=== PATIENT | female | born 1970 | race Caucasian/White ===

== ENCOUNTER 2016-10-26 11:48 | Outpatient (CLI) | payer MEDICAID ==
[~2016-10-26] VITALS: Ht 167.6 cm; Wt 65.9 kg
--- NOTE | ~2016-10-26 | HEMODYNAMI ---
PATIENT:MANAN APARICIO MEDICAL RECORD: [id number] : 74 LOCATION:[facility] ADMISSION DATE: 10/26/16 Generatedon:10/26/201616:24 Patient name: MANAN APARICIO Patient #: [id number] SSN: D OB: 1970 Date of study: 10/26/2016 Page: Of Hemodynamic Procedure Report Patient Data Patient Demographics Procedure consent was obtained First Name: MANAN Gender: Female Last Name: MARKUS : 1970 Patient #: [id number] Age: 46 year(s) Race: Additional ID: [id number] Contact details Address: [address] [place] [address] ROAD State: [place] City: [place] Zip code: [address] Past Medical History Allergies Allergen Reaction Date Comments Reported Amoxicillin 10/26/2016 Admission Admission Data Admission Date: 10/26/2016 Admission Time: 11:48 Height (in.): 66 BSA: 1.74 (m2) Height (cm.): 167.64 BMI: 23.4 (kg/m2) Weight (lbs.): 145 Weight (kg.): 65.77 Current Diagnosis Diagnosis Description Stable angina Lab Results Lab Result Date: 10/26/2016 Lab Result Time: 0:00 Biochemistry Name Units Result Min Max BUN mg/dl 9 --(*---)-- 7 18 Creatinine mg/dl 0.9 --(-*--)-- 0.6 1.3 CBC Name Units Result Min Max Hemoglobin g/dl 13.6 --(*---)-- 13.5 17.5 Procedure Procedure Types Cath Procedure Diagnostic Procedure C [facility] w/Coronaries Procedure Description Procedure Date Procedure Date: 10/26/2016 Procedure Start Time: 16:07 Procedure End Time: 16:18 Procedure Staff Name Function Marco Ruano RT Scrub Sivakumar Link RT Monitor Jona Martinez MD Performing Physician Joseline Cruz RN Nurse Procedure Data Cath Procedure Fluoroscopy Diagnostic fluoroscopy Total fluoroscopy Time: 1.2 time: 1.2 min min Diagnostic fluoroscopy Total fluoroscopy dose: 143 dose: 143 mGy mGy Contrast Material Contrast Material Type Amount (ml) Isovue 300 50 Entry Location Entry Primary Successful Side Size Upsize Upsize Entry Closure Gonzalez ccessful Closure Location (Fr) 1 (Fr) 2 (Fr) Remarks Device Remarks Radial Right 6 Fr Mechanical artery Short Compression Diagnostic catheters Device Type Used For End Catheter Placement Terumo 5Fr Reardan 110cm LV Angiography catheter Procedure Complications No complications Procedure Medications Medication Administration Route Dosage Oxygen NRB 2 l/min Heparin Flush Bag added to field 2 bags (1000units/500ml NS) Lidocaine 2% added to field 20 Benadryl I.V. 50 mg Radial Cocktail added to field 1 syringe (Verapomil 2mg/Nitro 400mcg/Heparin 1500units) Versed I.V. 1 mg Fentanyl I.V. 50 mcg Versed I.V. 1 mg Fentanyl I.V. 50 mcg Versed I.V. 1 mg Fentanyl I.V. 50 mcg Versed I.V. 1 mg Fentanyl I.V. 50 mcg Radial Cocktail I.A. 1 syringe (Verapomil 2mg/Nitro 400mcg/Heparin 1500units) Versed I.V. 1 mg Versed I.V. 1 mg Hemodynamics Rest BSA: 1.74 (m2) HGB: 13.6 (g/dl) O2 Consumption: Estimated: 165.35 (ml/min) O2 Co nsumption indexed: Estimated:95.03 (ml/min/m) Heart Rate: 57 (bpm) Pressure Samples Time Site Value (mmHg) Purpose Heart Use Rate(bpm) 16:12 LV 92/-6,87 EDP 88 Gradients Valve Time Site Site Mean SEP/DFP Peak To Heart Use 1 2 (mmHg) (sec/min) Peak Rate (mmHg) (bpm) Aortic 16:12 LV AO 102 Snapshots Pre Cath Intra NCS Post Cath Vital Signs Time Heart Resp SPO2 NIBP Rhythm Pain Sedation Rate (ipm) (%) (mmHg) Status Level (bpm) 15:55:11 63 16 100 120/72(86) NSR 0 (11) 10(A) , No pain 15:59:18 62 25 98 115/66(88) NSR 0 (11) 10(A) , No pain 16:03:24 60 15 97 106/69(83) NSR 0 (11) 10(A) , No pain 16:07:26 58 16 96 115/73(84) NSR 0 (11) 10(A) , No pain 16:11:36 63 22 96 112/64(94) NSR 0 (11) 10(A) , No pain 16:16:14 60 18 97 Disturbed NSR 0 (11) 10(A) , No pain 16:17:40 56 16 97 95/48(80) NSR 0 (11) 10(A) , No pain Medications Time Medication Route Dose Verified Delivered Reason Notes Effectiveness by by 15:57:29 Oxygen NRB 2 l/min Jona Joseline Per Juan Cruz RN physician 15:57:41 Heparin Flush added 2 bags Jona Jona used for Bag to Juan Martinez MD procedure (1000units/500ml field NS) 15:57:49 Lidocaine 2% added 20ml Jona Jona used for to vial Juan Martinez MD procedure field 15:57:55 Benadryl I.V. 50 mg Jona Joseline Per Juan Cruz RN physician 15:58:13 Radial Cocktail added 1 Jona Jona used for (Verapomil to syringe Juan Martinez MD procedure 2mg/Nitro field 400mcg/Hepari 16:01:23 Versed I.V. 1 mg Jona Joseline for sedation Juan Cruz RN 16:01:34 Fentanyl I.V. 50 mcg Jona Joseline for sedation Juan Cruz RN 16:04:26 Versed I.V. 1 mg Jona Joseline for sedation Juan Cruz RN 16:04:29 Fentanyl I.V. 50 mcg Jona Joseline for sedation Juan Cruz RN 16:06:17 Versed I.V. 1 mg Jona Joseline for sedation Juan Cruz RN 16:06:25 Fentanyl I.V. 50 mcg Jona Joseline for sedation Juan Cruz RN 16:08:08 Versed I.V. 1 mg Jona Joseline for sedation Juan Cruz RN 16:08:13 Fentanyl I.V. 50 mcg Jona Joseline for sedation Juan Cruz RN 16:11:06 Radial Cocktail I.A. 1 Jona Jona for (Verapomil syringe Juan Martinez MD vasodilation 2mg/Nitro 400mcg/Hepari 16:11:07 Versed I.V. 1 mg Jona Joseline for sedation Juan Cruz RN 16:13:21 Versed I.V. 1 mg Jona Joseline for sedation Juan Cruz microsoft bi developer Log Time Note 15:40:45 Diagnostic Cath Status : Elective 15:41:02 Abbi Longoria RT(R) sent for patient. Start room use. 15:41:04 Time tracking: Regular hours 15:41:07 Plan of Care:Hemodynamics will remain stable., Cardiac rhythm will remain stable., Comfort level will be maintained., Respiratory function will remain adequate., Patient/ family verbilizes understanding of procedure., Procedure tolerated without complication., Recovers from procedure without complications.. 15:44:37 Patient allergic to Amoxicillin 15:44:45 Patient Height : 167.64 cm 15:45:26 ACC Patient presents with Stable Angina CCS Anginal Class 2--Slight limitation of ordinary activity. 15:49:26 Patient received from Outpatients to [facility] 1 Alert and oriented. Tansferred to table in Supine position. 15:49:27 Warm blankets applied, and giuliano hugger turned on for patient comfort. 15:49:28 Correct patient and procedure confirmed by team. 15:49:29 Signed procedure consent form obtained from patient. 15:49:30 ECG and BP/O2 sat monitors applied to patient. 15:53:54 Vital chart was started 15:54:36 Baseline sample Acquired. 15:54:39 Rhythm: sinus rhythm 15:55:34 Full Disclosure recording started 15:56:02 H&P Date Dictated: 10/21/2016 Within 30 days and on chart., H&P Addendum completed by physician on day of procedure. (MUST COMPLETE FOR ALL OUTPATIENTS). 15:56:03 Pre-procedure instructions explained to patient. 15:56:04 Pre-op teaching completed and patient verbalized understanding. 15:56:09 Family in waiting room. 15:56:11 Patient NPO since Midnight. 15:56:29 Is the patient allergic to Iodine/contrast media? No. 15:56:50 Is patient on blood thinner?Yes 15:57:29 Oxygen 2 l/min NRB was given by Joseline Cruz RN; Per physician; 15:57:41 Heparin Flush Bag (1000units/500ml NS) 2 bags added to field was given by Jona Martinez MD; used for procedure; 15:57:49 Lidocaine 2% 20ml vial added to field was given by Jona Martinez MD; used for procedure; 15:57:55 Benadryl 50 mg I.V. was given by Joseline Cruz RN; Per physician; 15:58:13 Radial Cocktail (Verapomil 2mg/Nitro 400mcg/Heparin 1500units) 1 syringe added to field was given by Jona Martinez MD; used for procedure; 15:58:22 Patient diabetic? No. 15:58:23 If diabetic: On Metformin? No 15:58:24 ----Pre-sedation anethsthesia assessment.---- 15:58:26 Previous problem with sedation/anesthesia? No ? 15:58:27 Snore? Yes 15:58:29 Sleep apnea? No 15:58:35 Deviated septum? No 15:58:36 Opens mouth fully? Yes 15:58:37 Sticks out tongue? Yes 15:58:39 Airway obstruction? No ? 15:58:42 Dentures? No ? 15:58:44 Pre procedure: right dorsailis pedis pulse 1+ Palpable, but thready & weak; easily obliterated 15:58:47 Modified Franco's test Ulnar < 7 seconds 15:58:51 Patient pain scale 0/10 ?. 15:59:02 IV patent on arrival in left hand with 0.9% NaCl at 10ml/hr. 16:00:52 Lab Result : Hemoglobin 13.6 g/dl 16:00:52 Lab Result : Creatinine 0.9 mg/dl 16:00:52 Lab Result : BUN 9 mg/dl 16:01:03 Lab results completed and on chart. 16:01:06 Right Radial & Right Groin area was prepped with chlora-prep and draped in sterile fashion 16:01:07 Sharps counted by scrub and verified by RRosaNRosa 16:01:07 Alarms reviewed by Maria M Cardenas 16:01:09 --------ALL STOP TIME OUT------ 16:01:10 Final Timeout: patient, procedure, and site verified with staff and physician. All members of the team are in agreement. 16:01:13 Right Radial & Right Groin site verified by team. 16:01:16 Physical assessment completed. ASA score P 2 - A patient with mild systemic disease as per Jona Martinez MD. 16:01:20 Sedation plan: IV Moderate Sedation Versed, Fentanyl 16::23 Versed 1 mg I.V. was given by Joseline Cruz RN; for sedation; 16::27 Use device set Radial Dx 16::28 Acist Syringe opened to sterile field. 16::29 Bag Decanter opened to sterile field. 16::29 Cardinal Cath Pack opened to sterile field. 16::30 Acist Hand Control opened to sterile field. 16::30 St Milo 260cm J .035 wire opened to sterile field. 16:01:30 Terumo 6Fr Slender Glidesheath opened to sterile field. 16:01:31 Acist Manifold opened to sterile field. 16:01:33 Tegaderm 4 x 4 opened to sterile field. 16:01:34 Fentanyl 50 mcg I.V. was given by Joseline Cruz RN; for sedation; 16::59 Patient Weight : 65.77 kg 16:02:02 Current Diagnosis : Stable angina 16:04:26 Versed 1 mg I.V. was given by Joseline Cruz RN; for sedation; 16:04:29 Fentanyl 50 mcg I.V. was given by Joseline Cruz RN; for sedation; 16:06:17 Versed 1 mg I.V. was given by Joseline Cruz RN; for sedation; 16:06:25 Fentanyl 50 mcg I.V. was given by Joseline Cruz RN; for sedation; 16:07:25 Procedure started. 16:07:47 Zero performed for pressure channel P1 16::59 Local anesthetic to right radial artery with Lidocaine 2% by Jona Martinez MD.INITIAL ACCESS ONLY 16:08:06 A 6 Fr Short sheath was inserted into the Right Radial artery 16:08:08 Versed 1 mg I.V. was given by Joseline Cruz RN; for sedation; 16:08:13 Fentanyl 50 mcg I.V. was given by Joseline Cruz RN; for sedation; 16:10:06 A Terumo 5Fr Reardan 110cm catheter was advanced over the wire and used for LV Angiography. 16:10:16 LV angiography performed. 16:10:18 LV gram done using [place] 16:10:21 LV hemodynamics recorded. 16:10:24 Injector settings: Ml/sec: 7, Volume: 15, 16:11:06 Radial Cocktail (Verapomil 2mg/Nitro 400mcg/Heparin 1500units) 1 syringe I.A. was given by Jona Martinez MD; for vasodilation; 16:11:07 Versed 1 mg I.V. was given by Joseline Cruz RN; for sedation; 16:12:36 EF : 60 % 16:12:53 RCA angiography performed. 16:13:21 Versed 1 mg I.V. was given by Joseline Cruz RN; for sedation; 16:14:24 LCA angiography performed. 16:14:26 Catheter removed. 16:15:10 Contrast amount:Isovue 300 50ml. 16:15:18 Sheath removed intact; hemostasis achieved with Mechanical Compression to the Right Radial artery. 16:15:24 Terumo TR Band Standard opened to sterile field. 16:15:36 Procedure ended.(Physican Out) 16:16:17 TR band inflated with 10cc of air. 16:16:19 Insertion/operative site no bleeding no hematoma. 16:16:23 Post right radial artery:stable 16:16:25 Post Procedure Pulses reassessed and unchanged 16:16:28 Post procedure: right dorsailis pedis pulse 1+ Palpable, but thready & weak; easily obliterated. 16:16:32 Post procedure rhythm: sinus rhythm 16:16:34 Post procedure instruction explained to patient.Patient verbalizes understanding. 16:16:59 Procedure and supply charges have been captured, reviewed, submitted and are correct. 16:17:06 Procedure Complication : No complications 16:18:32 Vital chart was stopped 16:18:33 See physician's report for complete and final results. 16:18:35 Report given to Outpatients. 16:18:38 Patient transfered to Outpatients with Stretcher. 16:18:39 Full Disclosure recording stopped 16:18:39 Procedure ended. 16:18:45 End room use (Document Last) 16:24:15 Fluoroscopy time 01.20 minutes. 16:24:18 Flurop Dose total: 143 16:24:18 Fluoroscopy dose: 143 mGy 16:24:20 Sharps counted by scrub and verified by R.N. Device Usage Item Name Manufacture Quantity Catalog Hospital Part Current Minimal Lot# / Number Charge Number Stock Stock Serial# Code Acist Acist 1 42345 [id number] 618103 [id number] 20 Syringe [employer] Cardinal Cardinal 1 [id number] 13433 [id number] 5 Cath Pack Health Bag Microtek 1 2002S 435116 61538 [id number] 5 Decanter [employer]. Terumo 6Fr Terumo 1 [id number] 801931 206271 316938 [address] St Milo 1 332000 445572 726240 052512 30 260cm J .035 wire Acist Hand Acist 1 54015 723653 700656 314756 5 Control [employer] Inc Acist Acist 1 59415 034108 427307 862474 5 Manifold [employer] Inc Tegaderm 4 3M 1 [id number] 804729 970823 678596 5 x 4 Terumo 5Fr Terumo 1 400576 538843 322334 848343 5 Reardan 110cm catheter Terumo TR Terumo 1 [id number] 541025 031496 758648 40 Band Standard Signature Audit [place] Stage Time Signature Unsigned Intra-Procedure 10/26/2016 Sivakumar Link RT(R) 4:19:29 PM RT(R) 10/26/2016 4:24:11 PM Intra-Procedure 10/26/2016 Sivakumar Link 4:24:41 PM RT(R) Signatures Monitor : Sivakumar Link RT Signature : Date : Time : [address] [place] [address]
[~2016-10-26 11:48] MED LIST: ATIVAN1 MG PO; CARAFATE1 G PO; HYDROCODON-ACE1 EAC7 PO; HYDROCODONE-APA1 TAB PO; LEVOTHYROXINE125 MCG PO; PAXIL40 MG PO
[2016-10-26 13:43] VITALS: BP 122/68; Ht 167.6 cm; Wt 65.9 kg
[2016-10-26 13:46] LABS: BASOPHILS 0.2 % (0.0-2.0); EOSINOPHILS 2.5 % (0-7); HEMATOCRIT 40.2 % (36.0-48.0); HEMOGLOBIN 13.6 g/dL (12-16); IMMATURE GRANULOCYTES 0.1 % (0-5); LYMPHOCYTES 25.9 % (15-50); MCH 31.4 pg (26.0-34.0); MCHC 33.8 g/dL (31.0-37.0); MCV 92.8 fL (80.0-100.0); MEAN PLATELET VOLUME 9.9 fL (7.4-10.4); MONOCYTES 2.4 % (2-11); NEUTROPHILS 68.9 % (40-80); PLATELET COUNT 223 10x3/uL (130-400); RBC 4.33 10x6/uL (4.00-5.40); RDW 13.1 % (11.5-14.5); WBC 9.1 10x3/uL (4.8-10.8)
[2016-10-26 13:59] LABS: ANION GAP 13.4 mmol/L (8-16); CALCIUM 10.3 mg/dL (8.5-10.1); CARBON DIOXIDE 27.8 mmol/L (21.0-32.0); CREATININE - SERUM 0.9 mg/dL (0.6-1.3); POTASSIUM - SERUM 4.2 mmol/L (3.5-5.1)
--- NOTE | 2016-10-26 18:07 | NUR ---
162 RETURNED TO 2510 BY STRETCHER, PARENTS AT BEDSIDE, PLACED ON DATASCOPE MONITORING, SEE POST PROCEDURE VITAL SIGNS CHECKLIST FOR VITAL SIGN TRENDS
--- NOTE | 2016-11-09 15:45 | OP ---
PATIENT NAME: MANAN APARICIO MEDICAL RECORD: [id number] :74 LOCATION:D.CAT ADMISSION DATE: SURGEON: DUYEN CALLAWAY M.D. DATE OF OPERATION: 10/26/2016 REFERRING PHYSICIAN: Steven Diop MD PROCEDURES PERFORMED: 1. Selective coronary angiography. 2. Left heart catheterization with ventriculogram. INDICATION: A 46-year-old presents with persistent symptoms of angina. EQUIPMENT USED: A 5-Peruvian [place] catheter. TECHNIQUE: A 6-Peruvian sheath was inserted in retrograde fashion in the right radial artery. Next, selective coronary angiography was performed in standard views using a 5-Peruvian [place] catheter. Left heart catheterization was performed using [place] catheter as well. CORONARY ANATOMY: 1. Left main: Left main trunk is moderate in caliber. It gives rise to the LAD and circumflex. It is angiographically normal. 2. LAD: This is a moderate caliber vessel extending to the apex. It gives rise to a moderate caliber diagonal proximal segment. The LAD and diagonal are smooth-walled vessels and are angiographically normal. 3. Circumflex: This vessel is large in caliber and dominant. It provides a lateral branch in mid segment and posterolateral branch in distal segment. The circumflex ____ smooth-walled and angiographically normal. 4. Right coronary: This vessel is small in caliber and nondominant. It is angiographically normal. 5. Left ventricle: Left ventricle is normal in size and function. No wall motion abnormalities are seen. Ejection fraction is 60%. IMPRESSION: 1. Normal coronary arteries. 2. Normal left ventricular function. RECOMMENDATIONS: I suspect her chest pain is noncardiac in origin. TRANSINT:[id number] Voice Confirmation ID: [id number] DOCUMENT ID: [id number] DUYEN CALLAWAY M.D. at 1545 CC: [id number] DICTATION DATE: 10/26/16 1620 LAPPER: 10/26/16 1853 DEP CLI 10/26/16 [place] [id number] [place] [address]
== END 2016-10-26 19:10 | disposition home or self-care (01) ==
LOC: D.CATH 11:48
PROVIDERS: Internal Medicine Cardiovascular Disease
DX: I20.9 Angina pectoris, unspecified (principal)

== ENCOUNTER 2018-04-08 19:44 | Emergency (ER) | payer MEDICAID ==
[~2018-04-08] VITALS: Ht 167.6 cm; Wt 59.9 kg
[2018-04-08 19:46] VITALS: Ht 167.6 cm; Wt 59.9 kg
[2018-04-08] MEDS ORDERED: ELAVIL75 MG (19:49)
[2018-04-08] MEDS ORDERED: ZOLOFT50 MG PO (19:49)
[2018-04-08] MEDS ORDERED: CLIMARA 0.0.05 MG/PA (19:49)
[2018-04-08] MEDS ORDERED: KLONOPIN0.5 MG PO (19:50)
[2018-04-08 20:36] LABS: BASOPHILS 0.1 % (0-2); EOSINOPHILS 0.7 % (0-7); HEMATOCRIT 35.4 % (36.0-48.0); HEMOGLOBIN 12.1 g/dL (12-16); IMMATURE GRANULOCYTES 0.1 % (0-5); LYMPHOCYTES 23.6 % (15-50); MCH 30.9 pg (26.0-34.0); MCHC 34.2 g/dL (31.0-37.0); MCV 90.5 fL (80.0-100.0); MEAN PLATELET VOLUME 9.3 fL (7.4-10.4); MONOCYTES 2.9 % (2-11); NEUTROPHILS 72.6 % (40-80); RBC 3.91 10x6/uL (4.00-5.40); RDW 14.4 % (11.5-14.5)
[2018-04-08 20:40] LABS: PLATELET COUNT 289 10x3/uL (130-400)
[2018-04-08 21:01] LABS: ALBUMIN 3.8 g/dL (3.4-5.0); ANION GAP 13.9 mmol/L (8-16); BILIRUBIN - TOTAL 0.4 mg/dL (0.2-1.3); CALCIUM 8.7 mg/dL (8.5-10.1); CARBON DIOXIDE 23.8 mmol/L (21.0-32.0); CREATININE - SERUM 0.9 mg/dL (0.6-1.3); POTASSIUM - SERUM 3.7 mmol/L (3.5-5.1); PROTEIN - SERUM 7.4 g/dL (6.4-8.2)
[2018-04-08 21:16] LABS: APPEARANCE CLEAR (CLEAR); BILIRUBIN NEGATIVE (NEGATIVE); COLOR DK YELLOW (YELLOW); GLUCOSE NEGATIVE (NEGATIVE); KETONE NEGATIVE (NEGATIVE); NITRITE NEGATIVE (NEGATIVE); PROTEIN NEGATIVE (NEGATIVE); UROBILINOGEN NORMAL (NORMAL)
[2018-04-08] MEDS ORDERED: LEVSIN/ANASP0.125 MG PO (22:23)
[2018-04-08] MEDS ORDERED: ZOFRAN ODT4 MG/UDTAB PO (22:23)
[2018-04-08 23:10] VITALS: BP 141/79
== END 2018-04-08 23:14 | disposition home or self-care (01) ==
LOC: D.ER 19:44
PROVIDERS: Family Medicine
DX: R10.9 Unspecified abdominal pain (principal); R11.2 Nausea with vomiting, unspecified; F17.200 Nicotine dependence, unspecified, uncomplicated